=== PATIENT | female | born 1955 | race Caucasian/White ===

== ENCOUNTER 2019-12-26 07:08 | Day surgery (SDC) | payer MEDICARE, OTHER ==
[~2019-12-26] VITALS: Ht 170.2 cm; Wt 90.3 kg
[2019-12-26] VITALS (9 sets, daily range): BP systolic 111–131; BP diastolic 63–87
[2019-12-26] MEDS ORDERED: albumin 25% 100mL bottle x 1 IV PRN (07:35)
[2019-12-26] MEDS ORDERED: normal saline 1000ml 1,000 ML IV PRN (07:35)
[2019-12-26] MEDS ORDERED: GLYB5TAB7 PO (08:43)
[2019-12-26] MEDS ORDERED: LANTUS SQ (08:43)
[2019-12-26] MEDS ORDERED: SODI650T29 PO (08:43)
[2019-12-26] MEDS ORDERED: SITA100T11 PO (08:43)
[2019-12-26] MEDS ORDERED: SUMA100T16 PO (08:43)
[2019-12-26] MEDS ORDERED: FERR-28 PO (08:43)
[2019-12-26] MEDS ORDERED: ATOR10TA70 PO (08:43)
[2019-12-26] MEDS ORDERED: OLME20TA23 PO (08:43)
[2019-12-26] MEDS ORDERED: DULO60CA65 PO (08:43)
[2019-12-26] MEDS ORDERED: TRAM50TA2 PO (08:43)
[2019-12-26] MEDS ORDERED: CYCL-394 PO (08:43)
[2019-12-26] MEDS ORDERED: LEVO25TA2 PO (08:43)
[2019-12-26] MEDS ORDERED: AMIT50TA3 PO (08:43)
[2019-12-26] MEDS ORDERED: FURO20TA4 PO (08:43)
[2019-12-26] MEDS ORDERED: CARV6.252 PO (08:43)
[2019-12-26 10:38] LABS: ALBUMIN,BODY FLUID < 0.6 G/DL
[2019-12-26 10:39] LABS: TOTAL PROTEIN,BODY FLUID < 2.0 G/DL
[2019-12-26 10:57] LABS: LYMPHOCYTES,BODY FLUID 72 %; MONOCYTES,BODY FLUID 22 %; NEUTROPHILS,BODY FLUID 6 %
[2019-12-26 10:58] LABS: BF MESOTHELIAL CELLS FEW; BF RBC COUNT 520 /CU MM; BF WBC COUNT 255 /CU MM (0-1000); BFAPPEAR HAZY; BFCOLOR STRAW; BFVOLUME 60 ML
== END 2019-12-26 10:20 | disposition home or self-care (01) ==
LOC: SSTAY O 07:08
PROVIDERS: ATTEND Radiology Vascular & Interventional Radiology
DX: R18.8 Other ascites (principal); I10 Essential (primary) hypertension; E78.00 Pure hypercholesterolemia, unspecified; F32.9 Major depressive disorder, single episode, unspecified; D50.9 Iron deficiency anemia, unspecified; E11.9 Type 2 diabetes mellitus without complications; G89.29 Other chronic pain; E03.9 Hypothyroidism, unspecified; Z79.899 Other long term (current) drug therapy; Z79.84 Long term (current) use of oral hypoglycemic drugs
CPT/HCPCS: 49083; 82042; 83986; 84157; 87070; 89051

== ENCOUNTER 2020-01-27 07:28 | Day surgery (SDC) | payer MEDICARE, OTHER ==
[2020-01-27] VITALS (7 sets, daily range): BP systolic 103–123; BP diastolic 57–86
[~2020-01-27] VITALS: Ht 170.2 cm; Wt 92.0 kg
[~2020-01-27 07:28] MED LIST: AMIT50TA3 PO; ATOR10TA70 PO; CARV6.252 PO; CYCL-394 PO; DULO60CA65 PO; FERR-28 PO; FURO20TA4 PO; GLYB5TAB7 PO; LANTUS SQ; LEVO25TA2 PO; OLME20TA23 PO; SITA100T11 PO; SODI650T29 PO; SUMA100T16 PO; TRAM50TA2 PO
[2020-01-27] MEDS ORDERED: albumin 25% 100mL bottle x 1 IV PRN (07:50)
[2020-01-27] MEDS ORDERED: SUMA100T16 PO (08:27)
== END 2020-01-27 09:45 | disposition home or self-care (01) ==
LOC: SSTAY O 07:28
PROVIDERS: ATTEND Radiology Diagnostic Radiology
DX: R18.8 Other ascites (principal); I10 Essential (primary) hypertension; E78.00 Pure hypercholesterolemia, unspecified; F32.9 Major depressive disorder, single episode, unspecified; D50.9 Iron deficiency anemia, unspecified; E11.9 Type 2 diabetes mellitus without complications; G89.29 Other chronic pain; E03.9 Hypothyroidism, unspecified; Z79.899 Other long term (current) drug therapy
CPT/HCPCS: 49083

== ENCOUNTER 2020-02-13 06:57 | Day surgery (SDC) | payer MEDICARE, OTHER ==
[~2020-02-13] VITALS: Ht 170.2 cm; Wt 93.4 kg
[~2020-02-13 06:57] MED LIST changes: -CYCL-394 PO; -FERR-28 PO; -TRAM50TA2 PO
[2020-02-13] MEDS ORDERED: albumin 25% 100mL bottle x 1 IV PRN (07:20)
[2020-02-13 08:00] VITALS: BP 105/68
[2020-02-13 08:50] VITALS: BP 116/70
[2020-02-13 09:05] VITALS: BP 112/76
[2020-02-13 09:20] VITALS: BP 118/76
[2020-02-13 09:30] VITALS: BP 120/76
== END 2020-02-13 09:40 | disposition home or self-care (01) ==
LOC: SSTAY O 06:57
PROVIDERS: ATTEND Radiology Diagnostic Radiology
DX: R18.8 Other ascites (principal); I10 Essential (primary) hypertension; E78.00 Pure hypercholesterolemia, unspecified; F32.9 Major depressive disorder, single episode, unspecified; D50.9 Iron deficiency anemia, unspecified; E11.9 Type 2 diabetes mellitus without complications; G89.29 Other chronic pain; E03.9 Hypothyroidism, unspecified; Z79.899 Other long term (current) drug therapy; Z79.4 Long term (current) use of insulin
CPT/HCPCS: 49083

== ENCOUNTER 2020-03-03 07:15 | Day surgery (SDC) | payer MEDICARE, OTHER ==
[~2020-03-03] VITALS: Ht 170.2 cm; Wt 93.5 kg
[2020-03-03 07:26] VITALS: BP 119/70
[2020-03-03] MEDS ORDERED: albumin 25% 100mL bottle x 1 IV PRN (08:15)
[2020-03-03 08:33] VITALS: BP 105/77
[2020-03-03 08:45] VITALS: BP 118/90
[2020-03-03 09:00] VITALS: BP 112/68
== END 2020-03-03 09:10 | disposition home or self-care (01) ==
LOC: SSTAY O 07:15
PROVIDERS: ATTEND Radiology Diagnostic Radiology
DX: R18.8 Other ascites (principal); E78.00 Pure hypercholesterolemia, unspecified; I10 Essential (primary) hypertension; F32.9 Major depressive disorder, single episode, unspecified; D50.9 Iron deficiency anemia, unspecified; E11.9 Type 2 diabetes mellitus without complications; G89.29 Other chronic pain; E03.9 Hypothyroidism, unspecified; Z79.899 Other long term (current) drug therapy; Z79.4 Long term (current) use of insulin
CPT/HCPCS: 49083

== ENCOUNTER 2020-03-17 07:28 | Day surgery (SDC) | payer MEDICARE, OTHER ==
[~2020-03-17] VITALS: Ht 170.2 cm; Wt 92.9 kg
[2020-03-17] VITALS (8 sets, daily range): BP systolic 113–141; BP diastolic 70–81
[2020-03-17] MEDS ORDERED: albumin 25% 100mL bottle x 1 IV PRN (07:50)
== END 2020-03-17 10:03 | disposition home or self-care (01) ==
LOC: SSTAY O 07:28
PROVIDERS: ATTEND Radiology Diagnostic Radiology
DX: R18.8 Other ascites (principal); I10 Essential (primary) hypertension; E78.00 Pure hypercholesterolemia, unspecified; F32.9 Major depressive disorder, single episode, unspecified; D50.9 Iron deficiency anemia, unspecified; E11.9 Type 2 diabetes mellitus without complications; E03.9 Hypothyroidism, unspecified; G89.29 Other chronic pain; Z79.4 Long term (current) use of insulin; Z79.899 Other long term (current) drug therapy
CPT/HCPCS: 49083; P9047

== ENCOUNTER 2020-03-30 06:29 | Day surgery (SDC) | payer MEDICARE, OTHER ==
[2020-03-30] VITALS (8 sets, daily range): BP systolic 92–123; BP diastolic 40–74
[~2020-03-30] VITALS: Ht 170.2 cm; Wt 92.5 kg
[2020-03-30] MEDS ORDERED: albumin 25% 100mL bottle x 1 IV PRN (07:00)
[2020-03-30 09:56] LABS: ALBUMIN,BODY FLUID < 0.6 G/DL
[2020-03-30 10:08] LABS: LYMPHOCYTES,BODY FLUID 62 %; MONOCYTES,BODY FLUID 27 %; NEUTROPHILS,BODY FLUID 11 %
[2020-03-30 10:10] LABS: BF RBC COUNT 205 /CU MM; BF WBC COUNT 280 /CU MM (0-1000); BFAPPEAR HAZY; BFCOLOR YELLOW; BFVOLUME 56 ML
== END 2020-03-30 10:35 | disposition home or self-care (01) ==
LOC: SSTAY O 06:29
PROVIDERS: ATTEND Radiology Vascular & Interventional Radiology
DX: R18.8 Other ascites (principal); I10 Essential (primary) hypertension; E78.00 Pure hypercholesterolemia, unspecified; F32.9 Major depressive disorder, single episode, unspecified; D50.9 Iron deficiency anemia, unspecified; E11.9 Type 2 diabetes mellitus without complications; E03.9 Hypothyroidism, unspecified; G89.29 Other chronic pain; Z79.4 Long term (current) use of insulin; Z79.899 Other long term (current) drug therapy
CPT/HCPCS: 49083; 82042; 83986; 87070; 89051; P9047

== ENCOUNTER 2020-04-07 07:02 | Day surgery (SDC) | payer MEDICARE, OTHER ==
[~2020-04-07] VITALS: Ht 157.5 cm; Wt 90.8 kg
[2020-04-07 07:30] VITALS: BP 132/78
[2020-04-07] MEDS ORDERED: albumin 25% 100mL bottle x 1 IV PRN (07:35)
[2020-04-07 08:49] VITALS: BP 125/76
[2020-04-07 09:03] VITALS: BP 125/75
[2020-04-07 09:15] VITALS: BP 126/76
== END 2020-04-07 09:20 | disposition home or self-care (01) ==
LOC: SSTAY O 07:02
PROVIDERS: ATTEND Radiology Vascular & Interventional Radiology
DX: R18.8 Other ascites (principal); I10 Essential (primary) hypertension; E78.00 Pure hypercholesterolemia, unspecified; F32.9 Major depressive disorder, single episode, unspecified; D50.9 Iron deficiency anemia, unspecified; E11.9 Type 2 diabetes mellitus without complications; G89.29 Other chronic pain; E03.9 Hypothyroidism, unspecified; Z79.899 Other long term (current) drug therapy; Z79.84 Long term (current) use of oral hypoglycemic drugs
CPT/HCPCS: 49083

== ENCOUNTER 2020-04-13 08:04 | Day surgery (SDC) | payer MEDICARE, OTHER ==
[~2020-04-13] VITALS: Ht 170.2 cm; Wt 91.7 kg
[2020-04-13 08:15] VITALS: BP 147/81
[2020-04-13] MEDS ORDERED: albumin 25% 100mL bottle x 1 IV PRN (08:20)
[2020-04-13 08:21] VITALS: BP 147/81
== END 2020-04-13 08:35 | disposition home or self-care (01) ==
LOC: SSTAY O 08:04
PROVIDERS: ATTEND Radiology Diagnostic Radiology
DX: R18.8 Other ascites (principal); R14.0 Abdominal distension (gaseous); I10 Essential (primary) hypertension; E78.00 Pure hypercholesterolemia, unspecified; F32.9 Major depressive disorder, single episode, unspecified; D50.9 Iron deficiency anemia, unspecified; E11.9 Type 2 diabetes mellitus without complications; G89.29 Other chronic pain; E03.9 Hypothyroidism, unspecified; Z79.899 Other long term (current) drug therapy; Z79.4 Long term (current) use of insulin
CPT/HCPCS: 76705

== ENCOUNTER 2020-04-20 07:37 | Day surgery (SDC) | payer MEDICARE, OTHER ==
[~2020-04-20] VITALS: Ht 170.2 cm; Wt 94.6 kg
[2020-04-20 08:01] VITALS: BP 141/87
[2020-04-20] MEDS ORDERED: albumin 25% 100mL bottle x 1 IV PRN (08:10)
[2020-04-20 08:45] VITALS: BP 131/48
[2020-04-20 09:00] VITALS: BP_SYST 117; BP_SYST 119; BP_DIAS 65; BP_DIAS 73
[2020-04-20 09:08] LABS: BODY FLUID PH (NON-PLEURAL) 7.5
[2020-04-20 09:15] VITALS: BP 109/57
[2020-04-20 09:30] VITALS: BP 125/67
[2020-04-20 09:56] LABS: TOTAL PROTEIN,BODY FLUID < 2.0 G/DL
[2020-04-20 10:04] LABS: BF MESOTHELIAL CELLS MODERATE; BF RBC COUNT 210 /CU MM; BF WBC COUNT 240 /CU MM (0-1000); BFAPPEAR CLEAR; BFCOLOR COLORLESS; BFVOLUME 59 ML; EOSINOPHILS,BODY FLUID 1 %; LYMPHOCYTES,BODY FLUID 58 %; MONOCYTES,BODY FLUID 35 %; NEUTROPHILS,BODY FLUID 6 %
== END 2020-04-20 09:50 | disposition home or self-care (01) ==
LOC: SSTAY O 07:37
PROVIDERS: ATTEND Radiology Diagnostic Radiology
DX: R18.8 Other ascites (principal); I10 Essential (primary) hypertension; E78.00 Pure hypercholesterolemia, unspecified; F32.9 Major depressive disorder, single episode, unspecified; D50.9 Iron deficiency anemia, unspecified; E11.9 Type 2 diabetes mellitus without complications; G89.29 Other chronic pain; E03.9 Hypothyroidism, unspecified; Z79.4 Long term (current) use of insulin; Z79.899 Other long term (current) drug therapy
CPT/HCPCS: 49083; 83986; 84157; 87070; 89051; P9047

== ENCOUNTER 2020-05-01 07:05 | Day surgery (SDC) | payer MEDICARE, OTHER ==
[~2020-05-01] VITALS: Ht 170.2 cm; Wt 92.6 kg
[2020-05-01] MEDS ORDERED: albumin 25% 100mL bottle x 1 IV PRN (07:25)
[2020-05-01] MEDS ORDERED: normal saline 1000ml 1,000 ML IV PRN (07:25)
[2020-05-01 07:30] VITALS: BP 150/87
[2020-05-01 08:44] VITALS: BP 121/72
[2020-05-01 09:10] VITALS: BP 128/78
[2020-05-01 09:25] VITALS: BP 123/90
[2020-05-01 09:40] VITALS: BP 132/77
[2020-05-01 09:55] VITALS: BP 109/72
== END 2020-05-01 10:11 | disposition home or self-care (01) ==
LOC: SSTAY O 07:05
PROVIDERS: ATTEND Radiology Diagnostic Radiology
DX: R18.8 Other ascites (principal); I10 Essential (primary) hypertension; E78.00 Pure hypercholesterolemia, unspecified; F32.9 Major depressive disorder, single episode, unspecified; D50.9 Iron deficiency anemia, unspecified; E11.9 Type 2 diabetes mellitus without complications; G89.29 Other chronic pain; E03.9 Hypothyroidism, unspecified; Z98.890 Other specified postprocedural states; Z79.4 Long term (current) use of insulin; Z79.899 Other long term (current) drug therapy
CPT/HCPCS: 49083; P9047

== ENCOUNTER 2020-05-11 08:16 | Day surgery (SDC) | payer MEDICARE, OTHER ==
[2020-05-11] VITALS (7 sets, daily range): BP systolic 114–135; BP diastolic 55–96
[~2020-05-11] VITALS: Ht 170.2 cm; Wt 92.8 kg
[2020-05-11] MEDS ORDERED: normal saline 1000ml 1,000 ML IV PRN (08:45)
[2020-05-11] MEDS ORDERED: albumin 25% 100mL bottle x 1 IV PRN (08:45)
== END 2020-05-11 10:38 | disposition home or self-care (01) ==
LOC: SSTAY O 08:16
PROVIDERS: ATTEND Radiology Diagnostic Radiology
DX: R18.8 Other ascites (principal); I10 Essential (primary) hypertension; E78.00 Pure hypercholesterolemia, unspecified; F32.9 Major depressive disorder, single episode, unspecified; D50.9 Iron deficiency anemia, unspecified; E11.9 Type 2 diabetes mellitus without complications; E03.9 Hypothyroidism, unspecified; Z79.899 Other long term (current) drug therapy
CPT/HCPCS: 49083; P9047

== ENCOUNTER 2020-05-21 06:25 | Day surgery (SDC) | payer MEDICARE, OTHER ==
[~2020-05-21] VITALS: Ht 170.2 cm; Wt 91.1 kg
[2020-05-21] VITALS (9 sets, daily range): BP systolic 113–138; BP diastolic 64–79
[2020-05-21] MEDS ORDERED: normal saline 1000ml 1,000 ML IV PRN (06:55)
[2020-05-21] MEDS ORDERED: albumin 25% 100mL bottle x 1 IV PRN (06:55)
== END 2020-05-21 10:20 | disposition home or self-care (01) ==
LOC: SSTAY O 06:25
PROVIDERS: ATTEND Radiology Vascular & Interventional Radiology
DX: R18.8 Other ascites (principal); I10 Essential (primary) hypertension; E78.00 Pure hypercholesterolemia, unspecified; F32.9 Major depressive disorder, single episode, unspecified; D50.9 Iron deficiency anemia, unspecified; E11.9 Type 2 diabetes mellitus without complications; G89.29 Other chronic pain; E03.9 Hypothyroidism, unspecified; Z79.899 Other long term (current) drug therapy; Z79.4 Long term (current) use of insulin
CPT/HCPCS: 49083; P9047

== ENCOUNTER 2020-06-01 07:04 | Day surgery (SDC) | payer MEDICARE, OTHER ==
[~2020-06-01] VITALS: Ht 170.2 cm; Wt 91.9 kg
[2020-06-01] VITALS (7 sets, daily range): BP systolic 113–136; BP diastolic 70–78
[2020-06-01] MEDS ORDERED: normal saline 1000ml 1,000 ML IV PRN (07:40)
[2020-06-01] MEDS ORDERED: albumin 25% 100mL bottle x 1 IV PRN (07:40)
== END 2020-06-01 10:30 | disposition home or self-care (01) ==
LOC: SSTAY O 07:04
PROVIDERS: ATTEND Radiology Vascular & Interventional Radiology
DX: R18.8 Other ascites (principal); I10 Essential (primary) hypertension; E78.00 Pure hypercholesterolemia, unspecified; F32.9 Major depressive disorder, single episode, unspecified; D50.9 Iron deficiency anemia, unspecified; E11.9 Type 2 diabetes mellitus without complications; G89.29 Other chronic pain; E03.9 Hypothyroidism, unspecified; Z79.899 Other long term (current) drug therapy
CPT/HCPCS: 49083; P9047

== ENCOUNTER 2020-06-12 06:59 | Day surgery (SDC) | payer MEDICARE, OTHER ==
[~2020-06-12] VITALS: Ht 170.2 cm; Wt 91.2 kg
[2020-06-12 07:20] VITALS: BP 120/68
[2020-06-12] MEDS ORDERED: albumin 25% 100mL bottle x 1 IV PRN (07:20)
[2020-06-12] MEDS ORDERED: AMOX-441 PO (07:20)
[2020-06-12 08:26] VITALS: BP 132/79
[2020-06-12 08:45] VITALS: BP 131/60
== END 2020-06-12 08:45 | disposition home or self-care (01) ==
LOC: SSTAY O 06:59
PROVIDERS: ATTEND Radiology Diagnostic Radiology
DX: R18.8 Other ascites (principal)

== ENCOUNTER 2020-06-19 07:31 | Day surgery (SDC) | payer MEDICARE, OTHER ==
[~2020-06-19] VITALS: Ht 170.2 cm; Wt 92.7 kg
[~2020-06-19 07:31] MED LIST changes: +AMOX-441 PO
[2020-06-19] MEDS ORDERED: albumin 25% 100mL bottle x 1 IV PRN (08:05)
[2020-06-19 09:03] VITALS: BP 112/79
[2020-06-19 09:15] VITALS: BP 132/79
[2020-06-19 09:30] VITALS: BP 122/69
[2020-06-19 09:45] VITALS: BP 129/74
[2020-06-19 10:48] VITALS: BP 106/70
== END 2020-06-19 10:48 | disposition home or self-care (01) ==
LOC: SSTAY O 07:31
PROVIDERS: ATTEND Radiology Vascular & Interventional Radiology
DX: R18.8 Other ascites (principal); K76.0 Fatty (change of) liver, not elsewhere classified; I10 Essential (primary) hypertension; E11.9 Type 2 diabetes mellitus without complications; E78.00 Pure hypercholesterolemia, unspecified; F32.9 Major depressive disorder, single episode, unspecified; D50.9 Iron deficiency anemia, unspecified; E03.9 Hypothyroidism, unspecified; G89.29 Other chronic pain; Z79.4 Long term (current) use of insulin; Z79.899 Other long term (current) drug therapy; Z98.890 Other specified postprocedural states
CPT/HCPCS: 49083; 82948; P9047

== ENCOUNTER 2020-07-03 06:05 | Day surgery (SDC) | payer MEDICARE, OTHER ==
[2020-07-03] VITALS (7 sets, daily range): BP systolic 111–139; BP diastolic 51–78
[~2020-07-03] VITALS: Ht 170.2 cm; Wt 93.9 kg
[2020-07-03] MEDS ORDERED: albumin 25% 100mL bottle x 1 IV PRN (06:25)
== END 2020-07-03 09:40 | disposition home or self-care (01) ==
LOC: SSTAY O 06:05
PROVIDERS: ATTEND Radiology Vascular & Interventional Radiology
DX: R18.8 Other ascites (principal); I10 Essential (primary) hypertension; E78.00 Pure hypercholesterolemia, unspecified; F32.9 Major depressive disorder, single episode, unspecified; D50.9 Iron deficiency anemia, unspecified; E11.9 Type 2 diabetes mellitus without complications; G89.29 Other chronic pain; E03.9 Hypothyroidism, unspecified; Z87.19 Personal history of other diseases of the digestive system; Z79.899 Other long term (current) drug therapy; Z79.4 Long term (current) use of insulin
CPT/HCPCS: 49083; P9047

== ENCOUNTER 2020-07-16 08:05 | Day surgery (SDC) | payer MEDICARE, OTHER ==
[2020-07-16] VITALS (8 sets, daily range): BP systolic 106–129; BP diastolic 50–76
[~2020-07-16] VITALS: Ht 170.2 cm; Wt 89.5 kg
[~2020-07-16 08:05] MED LIST changes: -AMOX-441 PO
[2020-07-16] MEDS ORDERED: albumin 25% 100mL bottle x 1 IV PRN (08:25)
[2020-07-16] MEDS ORDERED: FERR-119 PO (08:52)
[2020-07-16] MEDS ORDERED: sodium bicarbonate PO (08:52)
[2020-07-16] MEDS ORDERED: CHOL100025 PO (08:52)
[2020-07-16 11:16] LABS: BF RBC COUNT 198 /CU MM; BF WBC COUNT 250 /CU MM (0-1000); BFAPPEAR HAZY; BFCOLOR STRAW; BFVOLUME 57 ML
[2020-07-16 11:18] LABS: ALBUMIN,BODY FLUID < 0.6 G/DL
[2020-07-16 11:19] LABS: TOTAL PROTEIN,BODY FLUID < 2.0 G/DL
[2020-07-16 12:27] LABS: BASOPHILS,BODY FLUID 1 %; BF MESOTHELIAL CELLS MANY; LYMPHOCYTES,BODY FLUID 53 %; MONOCYTES,BODY FLUID 38 %; NEUTROPHILS,BODY FLUID 8 %
== END 2020-07-16 11:11 | disposition home or self-care (01) ==
LOC: SSTAY O 08:05
PROVIDERS: ATTEND Radiology Vascular & Interventional Radiology
DX: R18.8 Other ascites (principal); I10 Essential (primary) hypertension; E78.00 Pure hypercholesterolemia, unspecified; F32.9 Major depressive disorder, single episode, unspecified; D50.9 Iron deficiency anemia, unspecified; E11.9 Type 2 diabetes mellitus without complications; G89.29 Other chronic pain; E03.9 Hypothyroidism, unspecified; Z87.19 Personal history of other diseases of the digestive system; Z79.4 Long term (current) use of insulin; Z79.899 Other long term (current) drug therapy
CPT/HCPCS: 49083; 82042; 84157; 89051; P9047

== ENCOUNTER 2020-07-30 07:30 | Day surgery (SDC) | payer MEDICARE, OTHER ==
[~2020-07-30] VITALS: Ht 170.2 cm; Wt 93.4 kg
[~2020-07-30 07:30] MED LIST changes: +CHOL100025 PO; +FERR-119 PO; -SODI650T29 PO; +sodium bicarbonate PO
[2020-07-30] MEDS ORDERED: albumin 25% 100mL bottle x 1 IV PRN (07:50)
[2020-07-30 08:00] VITALS: BP 114/68
[2020-07-30] MEDS ORDERED: TRAM50TA2 PO (08:05)
[2020-07-30 09:00] VITALS: BP 150/77
[2020-07-30 09:15] VITALS: BP 118/68
[2020-07-30 09:30] VITALS: BP 126/74
[2020-07-30 09:35] VITALS: BP 152/75
== END 2020-07-30 09:40 | disposition home or self-care (01) ==
LOC: SSTAY O 07:30
PROVIDERS: ATTEND Radiology Vascular & Interventional Radiology
DX: R18.8 Other ascites (principal); I10 Essential (primary) hypertension; E78.00 Pure hypercholesterolemia, unspecified; F32.9 Major depressive disorder, single episode, unspecified; D50.9 Iron deficiency anemia, unspecified; E11.9 Type 2 diabetes mellitus without complications; G89.29 Other chronic pain; E03.9 Hypothyroidism, unspecified; Z79.4 Long term (current) use of insulin; Z79.899 Other long term (current) drug therapy
CPT/HCPCS: 49083

== ENCOUNTER 2020-08-13 07:39 | Day surgery (SDC) | payer MEDICARE, OTHER ==
[2020-08-13] VITALS (11 sets, daily range): BP systolic 108–132; BP diastolic 49–81
[~2020-08-13] VITALS: Ht 170.2 cm; Wt 90.0 kg
[~2020-08-13 07:39] MED LIST changes: +TRAM50TA2 PO
[2020-08-13] MEDS ORDERED: albumin 25% 100mL bottle x 1 IV PRN (08:00)
--- NOTE | 2020-08-13 13:05 | NUR ---
Noted after patient was discharged that the patient had order for specimen to be drawn. Unable to obtain, notified Arya BECERRA.
== END 2020-08-13 11:28 | disposition home or self-care (01) ==
LOC: SSTAY O 07:39
PROVIDERS: ATTEND Radiology Vascular & Interventional Radiology
DX: R18.8 Other ascites (principal); I10 Essential (primary) hypertension; E78.00 Pure hypercholesterolemia, unspecified; F32.9 Major depressive disorder, single episode, unspecified; D50.9 Iron deficiency anemia, unspecified; E11.9 Type 2 diabetes mellitus without complications; G89.29 Other chronic pain; E03.9 Hypothyroidism, unspecified; Z79.4 Long term (current) use of insulin; Z79.899 Other long term (current) drug therapy; Z98.890 Other specified postprocedural states
CPT/HCPCS: 49083; P9047

== ENCOUNTER 2020-08-27 06:57 | Day surgery (SDC) | payer MEDICARE, OTHER ==
[2020-08-27] VITALS (7 sets, daily range): BP systolic 106–128; BP diastolic 55–81
[~2020-08-27] VITALS: Ht 170.2 cm; Wt 89.9 kg
[2020-08-27] MEDS ORDERED: albumin 25% 100mL bottle x 1 IV PRN (07:20)
[2020-08-27 10:23] LABS: ALBUMIN,BODY FLUID < 0.6 G/DL
[2020-08-27 10:25] LABS: TOTAL PROTEIN,BODY FLUID < 2.0 G/DL
[2020-08-27 11:05] LABS: BASOPHILS,BODY FLUID 3 %; EOSINOPHILS,BODY FLUID 1 %; LYMPHOCYTES,BODY FLUID 51 %; MONOCYTES,BODY FLUID 28 %; NEUTROPHILS,BODY FLUID 17 %
[2020-08-27 11:06] LABS: BF RBC COUNT 230 /CU MM; BF WBC COUNT 540 /CU MM (0-1000); BFAPPEAR HAZY; BFCOLOR STRAW; BFVOLUME 60 ML
[2020-08-27 11:28] LABS: BF MESOTHELIAL CELLS FEW
== END 2020-08-27 10:20 | disposition home or self-care (01) ==
LOC: SSTAY O 06:57
PROVIDERS: ATTEND Radiology Vascular & Interventional Radiology
DX: R18.8 Other ascites (principal); I10 Essential (primary) hypertension; E78.00 Pure hypercholesterolemia, unspecified; F32.9 Major depressive disorder, single episode, unspecified; D50.9 Iron deficiency anemia, unspecified; E11.9 Type 2 diabetes mellitus without complications; G89.29 Other chronic pain; E03.9 Hypothyroidism, unspecified; Z87.19 Personal history of other diseases of the digestive system; Z79.4 Long term (current) use of insulin; Z79.899 Other long term (current) drug therapy
CPT/HCPCS: 49083; 82042; 84157; 87070; 89051; P9047

== ENCOUNTER 2020-09-24 07:32 | Day surgery (SDC) | payer MEDICARE, OTHER ==
[~2020-09-24] VITALS: Ht 170.2 cm; Wt 90.5 kg
[2020-09-24] VITALS (7 sets, daily range): BP systolic 105–117; BP diastolic 59–70
[2020-09-24] MEDS ORDERED: albumin 25% 100mL bottle x 1 IV PRN (07:55)
[2020-09-24] MEDS ORDERED: normal saline 1000ml 1,000 ML IV PRN (07:55)
== END 2020-09-24 11:03 | disposition home or self-care (01) ==
LOC: SSTAY O 07:32
PROVIDERS: ATTEND Radiology Diagnostic Radiology
DX: R18.8 Other ascites (principal); I10 Essential (primary) hypertension; E78.00 Pure hypercholesterolemia, unspecified; F32.9 Major depressive disorder, single episode, unspecified; D50.9 Iron deficiency anemia, unspecified; E11.9 Type 2 diabetes mellitus without complications; E03.9 Hypothyroidism, unspecified; G89.29 Other chronic pain; K76.0 Fatty (change of) liver, not elsewhere classified; Z79.899 Other long term (current) drug therapy; Z79.4 Long term (current) use of insulin
CPT/HCPCS: 49083

== ENCOUNTER 2020-10-13 08:03 | Day surgery (SDC) | payer MEDICARE, OTHER ==
[2020-10-13] VITALS (10 sets, daily range): BP systolic 103–116; BP diastolic 55–79
[~2020-10-13] VITALS: Ht 170.2 cm; Wt 92.6 kg
[2020-10-13] MEDS ORDERED: normal saline 1000ml 1,000 ML IV PRN (08:30)
[2020-10-13] MEDS ORDERED: albumin 25% 100mL bottle x 1 IV PRN (08:30)
[2020-10-13] MEDS ORDERED: CYCL-394 PO (08:43)
[2020-10-13 09:32] LABS: BODY FLUID PH (NON-PLEURAL) 7.5
[2020-10-13 10:10] LABS: BF MESOTHELIAL CELLS FEW; BF RBC COUNT 215 /CU MM; BF WBC COUNT 220 /CU MM (0-1000); BFAPPEAR CLEAR; BFCOLOR YELLOW; BFVOLUME 44 ML; LYMPHOCYTES,BODY FLUID 65 %; MONOCYTES,BODY FLUID 21 %; NEUTROPHILS,BODY FLUID 14 %
[2020-10-13 11:25] LABS: TOTAL PROTEIN,BODY FLUID < 2.0 G/DL
== END 2020-10-13 10:42 | disposition home or self-care (01) ==
LOC: SSTAY O 08:03
PROVIDERS: ATTEND Radiology Diagnostic Radiology
DX: R18.8 Other ascites (principal); I10 Essential (primary) hypertension; E78.00 Pure hypercholesterolemia, unspecified; F32.9 Major depressive disorder, single episode, unspecified; D50.9 Iron deficiency anemia, unspecified; E11.9 Type 2 diabetes mellitus without complications; G89.29 Other chronic pain; E03.9 Hypothyroidism, unspecified; Z79.899 Other long term (current) drug therapy
CPT/HCPCS: 49083; 83986; 84157; 87070; 89051; P9047